=== PATIENT | male | born 1975 | race Caucasian/White ===

== ENCOUNTER 2024-01-08 07:00 | Day surgery (SDC) | payer OTHER, SELFPAY ==
[2024-01-08] VITALS (12 sets, daily range): BP systolic 98–149; BP diastolic 62–94; BMI 34.2
[2024-01-08] MEDS: NSS 315 ML IV (07:40)
[2024-01-08 10:30] LABS: ACT-LR - POC 253 Seconds (116-155)
[2024-01-08 10:50] LABS: ACT-LR - POC 324 Seconds (116-155)
[2024-01-08 11:06] LABS: ACT-LR - POC 265 Seconds (116-155)
[2024-01-08] MEDS: NSS 1000 IV (11:35)
--- NOTE | 2024-01-08 11:49 | ITS.CL.CATH ---
[employer] - Catheterization
Cardiac Catheterization
Procedure Report:
CARDIAC CATHETERIZATION REPORT
Date of Procedure: 01/08/2024
Referring: Win Marcus DO
Indication: Abnormal coronary calcium score with possibly cardiac symptoms
HEMODYNAMIC DATA
AO: 126/87
LV: 126/14
LEFT VENTRICULOGRAPHY: Normal segmental wall motion with EF 61%
CORONARY ANGIOGRAPHY
Dominance: Right
Left Main: Normal
LAD: There is moderate calcification of the proximal LAD. There is a relatively long 60-70% highly calcified proximal LAD lesion which originates immediately distal to the bifurcation with the large first diagonal branch. The remainder of the LAD
system has trivial luminal irregularities.
Circumflex: The circumflex gives rise to a small high rising OM1, a large OM 2 which is free of disease, and terminates with a medium sized OM 3. There is no significant disease in the circumflex system.
RCA: The RCA is dominant with 20% mid stenosis. The acute marginal branch becomes the PDA. RPL 1 and RPL 2 are small vessels. RPL 3 is a large bifurcating vessel with a 60% bifurcation stenosis (Can 1,1,0) spanning the smaller uninvolved
daughter branch
FloWire assessment: At the conclusion of the diagnostic study, we proceeded with FloWire assessment of the long 60-70% proximal LAD lesion. Heparin is used for anticoagulation. An EBU 3.75 guide catheter was used. A Endomedix flow wire was advanced
into the mid to distal LAD. iFR measurements were 0.77, 0.76, and 0.76. These are all consistent with flow-limiting disease. A decision was then made to stent the long calcific proximal LAD lesion. Predilatation was accomplished with a 2.5 x 15
NC trek balloon to 12 mert. There was complete balloon expansion. We then carefully placed a 3.25 x 23 Xience sarah point JEFFERSON to cover the lesion without covering the takeoff of the large high rising first diagonal branch. The stent was deployed at
14 mert then postdilated with a 3.25 NC trek to 17 mert along its entire length. The final angiographic result was outstanding with no residual stenosis and no compromise of the large D1.
Closure Device: None-the procedure was performed via the right radial artery. The Ramu's test was normal prior to the procedure.
Radiation (mGy): 1183
DAP (cm2.Gy): 68.3
Fluoroscopy time: 10.8 minutes
CONCLUSIONS
1: Normal left ventricular function with EF 61%
2: Double vessel CAD as described. The long proximal LAD lesion is flow-limiting by FloWire criteria
3. Successful stenting of long calcific proximal LAD lesion using 3.25 x 23 Xience sarah point JEFFERSON with outstanding angiographic result.
4. Recommend dual antiplatelet therapy for minimum 12 months along with aggressive risk factor modification
Copy to: Win Marcus DO, Bradford Fishman MD
Manny Mccord MD, [facility], [facility]
[2024-01-08] MEDS: TYLENOL 650 MG PO (12:36)
--- NOTE | 2024-01-08 15:22 | W.PN.UPDATE ---
Update Note
Progress Note Update
48 yo WM s/p PCI LAD x 1 JEFFERSON (same day). He had some mild chest heaviness 1-2/10 after procedure which has resolved, denies sob, karyn diet, voiding, amb w/o dizziness. EKG SR no ST changes. He will be on DAPT ASA/Plavix. Cardiac rehab c/s. He will
f/u Dr. Marcus in 2-4 weeks. He is for d/c home after 5pm.
CONCLUSIONS
1:� Normal left ventricular function with EF 61%
2:� Double vessel CAD as described.� The long proximal LAD lesion is flow-limiting by FloWire criteria
3.� Successful stenting of long calcific proximal LAD lesion using 3.25 x 23 Xience sarah point JEFFERSON with outstanding angiographic result.
4.� Recommend dual antiplatelet therapy for minimum 12 months along with aggressive risk factor modification
Copy to: Win Marcus DO, Bradford Fishman MD
== END 2024-01-08 17:00 | disposition home or self-care (01) ==
LOC: CATH 07:00
PROVIDERS: ATTENDING PHYSICIAN Internal Medicine Cardiovascular Disease; FAMILY PHYSICIAN Family Medicine; OTHER PHYSICIAN Internal Medicine Cardiovascular Disease
DX: I25.10 Atherosclerotic heart disease of native coronary artery without angina pectoris (principal); I25.84 Coronary atherosclerosis due to calcified coronary lesion; Z79.02 Long term (current) use of antithrombotics/antiplatelets; Z79.82 Long term (current) use of aspirin
CPT/HCPCS: 85347; 93005; 93458; 93571; C1725; C1769; C1874; C1894; C9600; Q9967

== ENCOUNTER 2024-05-18 17:44 | Outpatient (RCR) | payer OTHER, SELFPAY | END 2024-05-18 23:59 | disposition home or self-care (01) | LOC: CRHB 17:44 | PROVIDERS: ATTENDING PHYSICIAN Internal Medicine Cardiovascular Disease | DX: I25.10 Atherosclerotic heart disease of native coronary artery without angina pectoris (principal); Z95.5 Presence of coronary angioplasty implant and graft | CPT/HCPCS: 93798 ==

== ENCOUNTER 2024-05-23 17:30 | Outpatient (RCR) | payer OTHER, SELFPAY | END 2024-05-23 23:59 | disposition home or self-care (01) | LOC: CRHB 17:30 | PROVIDERS: ATTENDING PHYSICIAN Internal Medicine Cardiovascular Disease | DX: I25.10 Atherosclerotic heart disease of native coronary artery without angina pectoris (principal); Z95.5 Presence of coronary angioplasty implant and graft; I10 Essential (primary) hypertension; E78.5 Hyperlipidemia, unspecified | CPT/HCPCS: 93798 ==